=== PATIENT | female | born 1970 | race Caucasian/White ===

== ENCOUNTER 2024-12-02 20:37 | Emergency (ER) | payer OTHER, BC ==
[~2024-12-02] VITALS: Ht 167.6 cm; Wt 150.0 kg
[~2024-12-02 20:37] MED LIST: B COMPLEX1 EAC1 PO; BUPROPION XL300 MG PO; DICLOFENAC SOD100 G1 TOP; EPINEPHRIN0.3 MG/0.3 IM; ESCITALOPRAM OX20 MG PO; HYDROXYZINE HCL25 MG PO; IBUPROFEN800 MG PO; LEVALBUTER1.25 MG/3 INH; SINGULAIR10 MG PO; SYMBICORT 16010.2 GM INH; VENTOLIN HFA18 GM; VISINE DRY EYE30 ML OP; VITAMIN D5000 UNIT PO; XOLAIR150 MG/1 M SUB-Q
[2024-12-02 23:47] VITALS: BP 151/87
== END 2024-12-02 23:47 | disposition home or self-care (01) ==
LOC: ED 20:37
DX: S61.211A Laceration without foreign body of left index finger without damage to nail, initial encounter (principal); S70.11XA Contusion of right thigh, initial encounter; J45.909 Unspecified asthma, uncomplicated; I10 Essential (primary) hypertension; Z88.5 Allergy status to narcotic agent; Z88.0 Allergy status to penicillin; Z79.899 Other long term (current) drug therapy; W01.118A Fall on same level from slipping, tripping and stumbling with subsequent striking against other sharp object, initial encounter; Y92.59 Other trade areas as the place of occurrence of the external cause
CPT/HCPCS: 12002; 99282